=== PATIENT | male | born 1975 | race Caucasian/White ===

== ENCOUNTER 2017-02-04 10:00 | Emergency (ER) | payer MEDICAID ==
[~2017-02-04] VITALS: Wt 88.7 kg
[2017-02-04] MEDS ORDERED: IBUPROFEN 800 MG TAB PO ONE (11:00)
--- NOTE | 2017-02-04 11:36 | RADRPT ---
PROCEDURE: XR Ankle. CLINICAL INDICATION: Pain TECHNIQUE: Three views of the right ankle are available for review COMPARISON: None available FINDINGS: There is a mildly displaced, oblique fracture of the lateral malleolus. The distal tibia is otherwis e intact. The ankle mortise is preserved. An os peroneum is identified. Enthesopathic changes seen a t the Achilles insertion and plantar calcaneal margin. There is marked soft tissue swelling and a ti biotalar joint effusion. IMPRESSION: 1. Mildly displaced lateral malleolar fracture. 2. Soft tissue swelling and tibiotalar joint effusion. RPTAT: HH .Destin Ospina MD, MD Date Time Electronically viewed and signed by .Destin Ospina MD, on 02/04/2017 11:35 .d/
[2017-02-04] MEDS ORDERED: HYDR-906 PO (11:52)
[2017-02-04] MEDS ORDERED: NAPR-260 PO (11:52)
--- NOTE | 2017-02-04 12:22 | ERD ---
ER Documentation Chief Complaint Chief Complaint RIGHT ANKLE INJURY HPI 41-year-old male complaining of right ankle pain. Patient states that one week ago he twisted his ankle at work. He is ambulatory but causes pain. Has not taken pain medication. Denies numbness or tingling to extremity. ROS All systems reviewed and are negative except as per history of present illness. Medications Home Meds Active Scripts Naproxen* (Naprosyn*) 500 Mg Tablet, 500 MG PO BID Y for PAIN AND/OR INFLAMMATION, #30 TAB Prov:EVONNE RIVERA PA-C 02/04/17 Hydrocodone/Acetaminophen ([place] 5-325 Tablet) 1 Each Tablet, 1 TAB PO Q6H Y for PAIN, #7 TAB Prov:EVONNE RIVERA PA-C 02/04/17 PMhx/Soc Medical and Surgical Hx: pt denies Medical Hx, pt denies Surgical Hx Hx Alcohol Use: No Hx Substance Use: No Hx Tobacco Use: No Smoking Status: Never smoker Physical Exam Vitals Vital Signs Date Time Temp Pulse Resp B/P Pulse Ox O2 Delivery O2 Flow Rate FiO2 02/04/17 10:15 98.1 61 18 144/87 99 Physical Exam GENERAL: The patient is well-appearing, well-nourished, in no acute distress CHEST: Clear to auscultation bilaterally. There are no rales, wheezes or rhonchi. HEART: Regular rate and rhythm. No murmurs, clicks, rubs or gallops. No S3 or S4.ess. EXTREMITIES: Tender to palpation to right lateral ankle. No tenderness to palpation of the base of the fifth metatarsal. Pain with flexion and extension. Compartments soft. Pulses intact. Patient neurovascularly intact distal extremity. NEUROLOGIC: Alert and oriented. Cranial nerves II through XII intact. Motor strength in all 4 extremities with 5 out of 5 strength. Sensation grossly intact. Normal speech and gait. Babinski negative. DTR 2+ throughout. SKIN: Erythema and swelling noted to the right ankle. Results 24 hrs Current Medications Medications (Trade) Dose Ordered Sig/Isai Route PRN Reason Start Time Stop Time Status Last Admin Dose Admin Ibuprofen (Motrin) 800 mg ONCE ONCE PO 02/04/17 11:00 02/04/17 11:01 DC 02/04/17 10:53 Procedures/MDM DIAGNOSTIC IMAGING REPORT Patient: ALEXANDRIA PROCTOR : 1975 Age: 41 Sex: M [id number] DOS: 02/04/17 1047 Ordering MD: ANTONIA RIVERA PA-C Location: [facility] Room/Bed: PROCEDURE: XR Ankle. CLINICAL INDICATION: Pain TECHNIQUE: Three views of the right ankle are available for review COMPARISON: None available FINDINGS: There is a mildly displaced, oblique fracture of the lateral malleolus. The distal tibia is otherwise intact. The ankle mortise is preserved. An os peroneum is identified. Enthesopathic changes seen at the Achilles insertion and plantar calcaneal margin. There is marked soft tissue swelling and a tibiotalar joint effusion. IMPRESSION: 1. Mildly displaced lateral malleolar fracture. 2. Soft tissue swelling and tibiotalar joint effusion. ER Course: Posterior ankle splint and crutches given in ED. Patient is neurovascularly intact pre-and post splint application MDM: 41-year-old male complaining of pain to right ankle. Patient's x-ray appears to have ankle fracture. I have low suspicion for neurodeficit. I have low suspicion for compartment syndrome. I have low suspicion for open fracture. Patient is placed in splint and recommended to follow-up with orthopedics within the next 1-2 days for close evaluation. Patient is told if symptoms change or worsen to follow-up at [facility] for outpatient orthopedic care. Patient is discharged with strict ER precautions. Departure Diagnosis: Primary Impression: Ankle injury Condition: Stable Patient Instructions: Fracture, Ankle (General) Referrals: DYANA OMER MD [facility] YOU HAVE RECEIVED A MEDICAL SCREENING EXAM AND THE RESULTS INDICATE THAT YOU DO NOT HAVE A CONDITION THAT REQUIRES URGENT TREATMENT IN THE EMERGENCY DEPARTMENT. FURTHER EVALUATION AND TREATMENT OF YOUR CONDITION CAN WAIT UNTIL YOU ARE SEEN IN YOUR DOCTORS OFFICE WITHIN THE NEXT 1-2 DAYS. IT IS YOUR RESPONSIBILITY TO MAKE AN APPOINTMENT FOR FOLOW-UP CARE. IF YOU HAVE A PRIMARY DOCTOR --you should call your primary doctor and schedule an appointment IF YOU DO NOT HAVE A PRIMARY DOCTOR YOU CAN CALL OUR PHYSICIAN REFERRAL HOTLINE AT IF YOU CAN NOT AFFORD TO SEE A PHYSICIAN YOU CAN CHOSE FROM THE FOLLOWING [facility] [address] [facility]. [facility] [address] [facility] [address] [facility] [address] [facility] [address] [facility]. [facility] [address] [facility]. [facility] YOU HAVE RECEIVED A MEDICAL SCREENING EXAM AND THE RESULTS INDICATE THAT YOU DO NOT HAVE A CONDITION THAT REQUIRES URGENT TREATMENT IN THE EMERGENCY DEPARTMENT. FURTHER EVALUATION AND TREATMENT OF YOUR CONDITION CAN WAIT UNTIL YOU ARE SEEN IN YOUR DOCTORS OFFICE WITHIN THE NEXT 1-2 DAYS. IT IS YOUR RESPONSIBILITY TO MAKE AN APPOINTMENT FOR FOLOW-UP CARE. IF YOU HAVE A PRIMARY DOCTOR --you should call your primary doctor and schedule and appointment IF YOU DO NOT HAVE A PRIMARY DOCTOR YOU CAN CALL OUR PHYSICIAN REFERRAL HOTLINE AT . IF YOU CAN NOT AFFORD TO SEE A PHYSICIAN YOU CAN CHOSE FROM THE FOLLOWING [facility] INSTITUTIONS: [facility] [address] [place] [address] [facility] [address] [place] [address] [facility] [address] [place] [address] [facility] Hours: Mon-Fri 9:00 AM - 5:00 PM Additional Instructions: FOLLOW UP WITH YOUR PRIMARY CARE PHYSICIAN TOMORROW.Return to this facility if you are not improving as expected. EVONNE RIVERA PA-C Feb 04, 2017 12:22
== END 2017-02-04 12:24 | disposition home or self-care (01) ==
LOC: FTE 10:00
DX: S99.911A Unspecified injury of right ankle, initial encounter (principal); X50.9XXA Other and unspecified overexertion or strenuous movements or postures, initial encounter; Y92.89 Other specified places as the place of occurrence of the external cause
CPT/HCPCS: 29515; 73610; Z7502; Z7610